=== PATIENT | male | born 1955 | race Caucasian/White ===

== ENCOUNTER 2025-01-10 06:18 | Day surgery (SDC) | payer MEDICARE, OTHER, SELFPAY ==
[2025-01-10 06:45] VITALS: BP 170/88
[2025-01-10 06:46] VITALS: BMI 24.7
--- NOTE | 2025-01-10 07:19 | ITS.CL.ICD ---
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
Implantable Cardioverter Defibrillator
Procedure Report:
ICD GENERATOR CHANGE
Date of Procedure: January 10, 2025
Primary Care Physician: Dr. Teja Chilel
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
Procedures:
1. Removal of dual chamber ICD generator at ATTILA
2. Implant of new dual chamber ICD generator
INDICATION FOR PROCEDURE:
1. ICD at Elective Replacement Indicies and
2. Current CHF Class 1 and patient is on guideline directed medical therapy at maximal tolerated dose for greater 3 months
3. Diagnosis of CHF initially made over 9 months ago
4. Life expectancy is greater than one year
5. Secondary prevention at initial implant
6. Secondary prevention at th serial number [id number] is generator change
7. Explanted device has delivered appropriate therapy: No
Indication/History: The patient is a 69-year-old man with a past medical history significant for ICD placement for ventricular tachycardia who presents for ICD generator change due to battery ATTILA. All lead data is stable.
Antibiotic: Ancef 2 g
Sedation/anesthesia: Per anesthesia staff
Description of Procedure: 'Time out' was called and confirmed. The patient was prepped and draped in sterile fashion. Lidocaine with epinephrine was used for local anesthesia. An incision was made along the previous incision and the device and
leads were carefully dissected from the pocket. Hemostasis was obtained with electrocautery. The leads were from the device header and tested using an external analyzer. The pocket was liberally irrigated with antibiotic solution. Once
testing (see below) showed adequate and stable function, the leads were connected to the generator header and the leads and generator were placed within the pocket. The pocket was closed in the typical fashion.
EXPLANTED ICD GENERATOR: [employer] Model #: [id number] implanted: 11/07/2014
IMPLANTED ICD GENERATOR: Garcia model [id number]; serial #[id number]
Existing RA lead: [employer] Model: [id number]; serial number: [id number] implanted 11/07/2014
Existing RV lead: [employer] Model: [id number]; serial number: [id number] implanted 11/07/2014
DEVICE TESTING:
Sensing: RA 5.0 mV, RV 4.0 mV
Capture: RA 1.25 V@0.4ms, RV 1.5 V@0.4ms
Ohms: RA 540, RV 440
FINAL PROGRAMMING
Yinka Pacing: DDDR 50-120 ppm
Tachy parameters:
VF: 188 bpm, ATP while charging, Shock 36Jx1, 40Jx5
VT1: 150 bpm, Monitor
VT2: 169 bpm, ATPx4< ATPx4, 25Jx1, 36Jx2
Complications: None
CONCLUSIONS:
1. Successful explant of dual chamber permanent defibrillator
2. Successful implant of dual chamber permanent defibrillator
RECOMMENDATIONS:
1. Routine post-op care.
2. In-Office wound check within 7 days.
3. Office interrogation within 4 weeks.
--- NOTE | 2025-01-10 08:11 | W.ICD.CONTRA ---
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
-
History of DE?: No
LV Function
Left ventricular function study result?: Ejection Fraction >/= 40%
ACEI/ARB/ARNI
Patient already on ACEI/ARB/ARNI: No
Beta-Luke
Patient already on Beta Luke: No
[2025-01-10 08:54] VITALS: BP 124/76
[2025-01-10 08:55] VITALS: BP 124/76
[2025-01-10 10:18] VITALS: BP 119/78
[2025-01-10 10:33] VITALS: BP 120/77
[2025-01-10 10:48] VITALS: BP 110/76
== END 2025-01-10 11:17 | disposition home or self-care (01) ==
LOC: CATH 06:18
PROVIDERS: ATTENDING PHYSICIAN Internal Medicine Interventional Cardiology; FAMILY PHYSICIAN Family Medicine
DX: Z45.02 Encounter for adjustment and management of automatic implantable cardiac defibrillator (principal); I47.20 Ventricular tachycardia, unspecified; I10 Essential (primary) hypertension; E78.00 Pure hypercholesterolemia, unspecified; I25.10 Atherosclerotic heart disease of native coronary artery without angina pectoris; Z95.5 Presence of coronary angioplasty implant and graft; Z79.82 Long term (current) use of aspirin
CPT/HCPCS: 33263; C1721